=== PATIENT | female | born 1985 | race Two or more races ===

== ENCOUNTER → 2018-01-29 | Outpatient (REF) | payer OTHER | LOC: M SFHCPLAZ 15:40 | DX: Z01.419 Encounter for gynecological examination (general) (routine) without abnormal findings (principal) ==

== ENCOUNTER → 2018-03-10 | Outpatient (CLI) | payer OTHER | LOC: M RAD 16:18 | DX: N92.6 Irregular menstruation, unspecified (principal) | CPT/HCPCS: 76856 ==

== ENCOUNTER → 2018-03-11 | Outpatient (REF) | payer OTHER ==
[2018-03-11 12:02] LABS: BASO # 0.1 10^3/uL (0.0-0.2); BASO % 0.8 % (0.0-1.0); EOS # 0.2 10^3/uL (0.0-0.50); EOS % 2.6 % (0.0-3.0); HEMATOCRIT 42.7 % (36.0-47.0); HEMOGLOBIN 14.1 g/dl (12.0-15.5); IMMATURE GRANULOCYTE % 0.3 % (0-3.0); LYMPH # 1.8 10^3/uL (1.5-4.5); LYMPH % 28.3 % (24.0-44.0); MEAN CORPUSCULAR HEMOGLOBIN 31.4 pg (27.0-33.0); MEAN CORPUSCULAR VOLUME 95.1 fl (80.0-96.0); MONO # 0.6 10^3/uL (0.0-0.8); MONO % 8.8 % (0.0-5.0); NEUTROPHILS # 3.9 10^3/uL (1.8-7.7); NEUTROPHILS % 59.2 % (36.0-66.0); PLATELET COUNT, AUTOMATED 204 10^3/uL (150-450); RED BLOOD COUNT 4.49 10^6/uL (4.00-5.40); WHITE BLOOD COUNT 6.5 10^3/uL (4.0-10.0)
[2018-03-11 12:23] LABS: FREE THYROXINE INDEX 4.1 % (1.3-4.8); T UPTAKE 33 % (30-39); THYROXINE (T4) 12.3 UG/DL (4.5-12.0)
== END ==
LOC: M LABDRAW1 11:34
DX: N92.6 Irregular menstruation, unspecified (principal)

== ENCOUNTER → 2018-03-17 | Outpatient (REF) | payer OTHER ==
[2018-03-17 12:22] LABS: ESTIMATED AVERAGE GLUCOSE 97 MG/DL (60-110)
[2018-03-19 00:07] LABS: TESTOSTERONE FREE (DIRECT) 1.3 pg/mL (0.0-4.2)
== END ==
LOC: M SFHCPLAZ 10:44
DX: N93.9 Abnormal uterine and vaginal bleeding, unspecified (principal)

== ENCOUNTER → 2018-03-30 | Outpatient (CLI) | payer OTHER | LOC: M RAD 10:25 | DX: M54.5 Low back pain (principal) | CPT/HCPCS: 72114 ==

== ENCOUNTER → 2018-06-16 | Outpatient (CLI) | payer OTHER | LOC: M RAD 10:11 | DX: M54.16 Radiculopathy, lumbar region (principal) | CPT/HCPCS: 72148 ==

== ENCOUNTER → 2018-07-29 | Outpatient (REF) | payer OTHER ==
[2018-07-29 16:27] LABS: BASO % 0.5 % (0.0-1.0); EOS # 0.1 10^3/uL (0.0-0.50); EOS % 1.3 % (0.0-3.0); HEMATOCRIT 39.3 % (36.0-47.0); HEMOGLOBIN 13.3 g/dl (12.0-15.5); IMMATURE GRANULOCYTE % 0.3 % (0-3.0); LYMPH % 25.7 % (24.0-44.0); MEAN CORPUSCULAR HEMOGLOBIN 32.1 pg (27.0-33.0); MEAN CORPUSCULAR HGB CONC 33.8 g/dl (32.0-36.5); MEAN CORPUSCULAR VOLUME 94.9 fl (80.0-96.0); MONO # 0.6 10^3/uL (0.0-0.8); NEUTROPHILS # 5.1 10^3/uL (1.8-7.7); NEUTROPHILS % 64.2 % (36.0-66.0); PLATELET COUNT, AUTOMATED 214 10^3/uL (150-450); RED BLOOD COUNT 4.14 10^6/uL (4.00-5.40); RED CELL DISTRIBUTION WIDTH 11.9 % (11.5-14.5); WHITE BLOOD COUNT 7.9 10^3/uL (4.0-10.0)
[2018-08-03 10:27] LABS: O+P EXAM Final report (.)
== END ==
LOC: M SFHCPLAZ 14:33
DX: B83.9 Helminthiasis, unspecified (principal)

== ENCOUNTER → 2018-08-06 | Outpatient (REF) | payer OTHER ==
[2018-08-06 12:44] LABS: APPEARANCE, URINE CLEAR (CLEAR); BACTERIA, URINE AUTO NEGATIVE (NEGATIVE); BILIRUBIN, URINE AUTO NEGATIVE (NEGATIVE); BLOOD, URINE BLOOD NEGATIVE (NEGATIVE); COLOR, URINE YELLOW (YELLOW); GLUCOSE, URINE (UA) AUTO NEGATIVE (NEGATIVE); KETONE, URINE AUTO NEGATIVE (NEGATIVE); LEUKOCYTE ESTERASE, URINE AUTO NEGATIVE (NEGATIVE); MUCUS, URINE SMALL (NEGATIVE); NITRITE, URINE AUTO NEGATIVE (NEGATIVE); PROTEIN, URINE AUTO NEGATIVE (NEGATIVE); RBC, URINE AUTO 3 /HPF (0-3); SPECIFIC GRAVITY URINE AUTO 1.019 (1.002-1.035); SQUAMOUS EPITHELIAL CELL UR AU 1 /HPF (0-6); UROBILINOGEN, URINE AUTO 0.2 mg/dL (0.0-2.0); WBC, URINE AUTO 0 /HPF (0-3)
== END ==
LOC: M SFHCPLAZ 11:37
DX: R82.90 Unspecified abnormal findings in urine (principal)

== ENCOUNTER → 2018-08-07 | Outpatient (REF) | payer OTHER | LOC: M SFHCPLAZ 10:01 | DX: R10.84 Generalized abdominal pain (principal) ==

== ENCOUNTER → 2019-01-21 | Outpatient (REF) | payer OTHER ==
[2019-01-21 14:26] LABS: ALBUMIN 4.3 GM/DL (3.2-5.2); ALT/SGPT 21 U/L (12-78); BILIRUBIN,TOTAL 1.1 MG/DL (0.2-1.0); BLOOD UREA NITROGEN 10 MG/DL (7-18); CALCIUM LEVEL 8.7 MG/DL (8.5-10.1); CARBON DIOXIDE LEVEL 25 MEQ/L (21-32); CHLORIDE LEVEL 108 MEQ/L (98-107); CREATININE FOR GFR 0.67 MG/DL (0.55-1.30); GLOMERULAR FILTRATION RATE > 60.0 (>60); GLUCOSE, FASTING 80 MG/DL (70-100); POTASSIUM SERUM 3.9 MEQ/L (3.5-5.1); SODIUM LEVEL 140 MEQ/L (136-145); TOTAL PROTEIN 7.7 GM/DL (6.4-8.2)
== END ==
LOC: M LABDRAW1 12:10
PROVIDERS: ATTEND Student in an Organized Health Care Education/Training Program
DX: B35.1 Tinea unguium (principal)

== ENCOUNTER → 2019-02-18 | Outpatient (REF) | payer OTHER ==
[2019-02-18 13:50] LABS: ALBUMIN 4.2 GM/DL (3.2-5.2); ALT/SGPT 31 U/L (12-78); BILIRUBIN,TOTAL 0.7 MG/DL (0.2-1.0); BLOOD UREA NITROGEN 15 MG/DL (7-18); CARBON DIOXIDE LEVEL 24 MEQ/L (21-32); CHLORIDE LEVEL 108 MEQ/L (98-107); CREATININE FOR GFR 0.76 MG/DL (0.55-1.30); GLOMERULAR FILTRATION RATE > 60.0 (>60); GLUCOSE, FASTING 70 MG/DL (70-100); SODIUM LEVEL 142 MEQ/L (136-145)
== END ==
LOC: M LABDRAW1 12:38
PROVIDERS: ATTEND Student in an Organized Health Care Education/Training Program
DX: B35.1 Tinea unguium (principal)

== ENCOUNTER → 2019-03-18 | Outpatient (REF) | payer OTHER | LOC: M SFHCPLAZ 11:38 | PROVIDERS: ATTEND Family Medicine | DX: Z11.4 Encounter for screening for human immunodeficiency virus [HIV] (principal) ==

== ENCOUNTER → 2021-01-21 | Outpatient (REF) | payer OTHER | LOC: M SFHCWAGY 18:51 | PROVIDERS: ATTEND Nurse Practitioner Women's Health | DX: Z12.4 Encounter for screening for malignant neoplasm of cervix (principal) ==

== ENCOUNTER 2025-10-23 11:00 | Emergency (ER) | payer OTHER ==
[~2025-10-23] VITALS: Ht 160 cm; Wt 43.2 kg
[2025-10-23 14:12] VITALS: BP 114/80; TEMP 97.9; O2SAT 98
== END 2025-10-23 14:14 | disposition home or self-care (01) ==
LOC: EDBD 11:00 → M ED 11:00
DX: S06.0X0A Concussion without loss of consciousness, initial encounter (principal); S16.1XXA Strain of muscle, fascia and tendon at neck level, initial encounter; S29.012A Strain of muscle and tendon of back wall of thorax, initial encounter; V49.40XA Driver injured in collision with unspecified motor vehicles in traffic accident, initial encounter; Y92.9 Unspecified place or not applicable; Y93.9 Activity, unspecified; Y99.9 Unspecified external cause status